=== PATIENT | male | born 1995 | race Caucasian/White ===

== ENCOUNTER 2020-07-14 16:08 | Emergency (ER) | payer SELFPAY ==
[~2020-07-14] VITALS: Ht 180.3 cm; Wt 98.4 kg
[2020-07-14 16:11] VITALS: BP 167/97
--- NOTE | 2020-07-14 16:15 | NUR ---
PATIENT PRESENTS TO ED WITH DIZZINESS AND NAUSEA . PT STATES HE WAS SEEN ON MONDAY FOR DIZZINESS, NAUSEA BUT MEDS DID NOT HELP . DENIES V/D; SKIN IS PINK/WARM/DRY; AAOX4 WITH EVEN AND STEADY GAIT; LUNGS CLEAR BL; HR EVEN AND REGULAR; PT DENIES ANY FEVER, CP, SOB, OR COUGH AT THIS TIME; PATIENT STATES PAIN OF 0/10 AT THIS TIME; VSS; PATIENT POSITIONED FOR COMFORT; HOB ELEVATED; BEDRAILS UP X2; BED DOWN. ER MD MADE AWARE OF PT STATUS.
[2020-07-14 17:55] VITALS: BP 167/97
--- NOTE | 2020-07-14 17:55 | NUR ---
Patient discharged with v/s stable. Written and verbal after care instructions given and explained. Patient verbalized understanding. Ambulatory with steady gait. All questions addressed prior to discharge. Advised to follow up with PMD.
== END 2020-07-14 17:55 | disposition home or self-care (01) ==
LOC: MED 16:08
DX: R42 Dizziness and giddiness (principal)
CPT/HCPCS: 93005; 99283